=== PATIENT | male | born 1975 | race Caucasian/White ===

== ENCOUNTER 2017-04-28 23:46 | Emergency (ER) | payer OTHER ==
[~2017-04-28] VITALS: Ht 175.3 cm; Wt 90.7 kg
[2017-04-29 00:43] VITALS: Ht 175.3 cm; Wt 90.7 kg
[2017-04-29 03:52] VITALS: BP 122/77
== END 2017-04-29 03:52 | disposition home or self-care (01) ==
LOC: ED 23:46
DX: S20.212A Contusion of left front wall of thorax, initial encounter (principal); V49.69XA Unspecified car occupant injured in collision with other motor vehicles in traffic accident, initial encounter; W22.11XA Striking against or struck by driver side automobile airbag, initial encounter; Y93.89 Activity, other specified; Y99.8 Other external cause status; Y92.89 Other specified places as the place of occurrence of the external cause